=== PATIENT | male | born 1955 | race American Indian/Alaskan Native ===

== ENCOUNTER 2018-03-21 18:58 | Inpatient (IN) | payer MEDICAID, OTHER ==
[2018-03-21] MEDS ORDERED: Sodium Chloride 0.9% 500 ML IV STA (19:31)
[2018-03-21 19:58] LABS: ALB/GLOB RATIO 1.2 (1.1-1.8); ALBUMIN 4.6 g/dL (3.0-4.8); ALT/SGPT 78 U/L (7-56); AST/SGOT 80 U/L (17-59); BLOOD UREA NITROGEN 9 mg/dL (7-21); CALCIUM 8.9 mg/dL (8.4-10.5); GFR AFRICAN-AMERICAN > 60; GFR NON-AFRICAN AMERICAN > 60; LIPASE 69 U/L (23-300)
[2018-03-21 20:08] LABS: BASO # 0.02 K/mm3 (0.0-2.0); BASO % 0.4 % (0.0-3.0); EOS % 0.4 % (1.5-5.0); GRAN # 3.63 (1.4-6.5); GRAN % 72.8 % (50.0-68.0); LYMPH # 0.9 (1.2-3.4); LYMPH % 17.4 % (22.0-35.0); MEAN CELL VOLUME 93.1 fl (80.0-105.0); MEAN CORPUSCULAR HEMOGLOBIN 32.2 pg (25.0-35.0); MEAN CORPUSCULAR HGB CONC 34.6 g/dl (31.0-37.0); MONO # 0.5 (0.1-0.6); RBC 4.35 10^6/uL (3.5-6.1); RED CELL DISTRIBUTION WIDTH 13.2 % (11.5-14.5)
[2018-03-21 20:09] LABS: TROPONIN I 0.01 ng/mL
--- NOTE | 2018-03-21 20:13 | ED PDOC ---
Arrival/HPI - General Historian: Patient <Lyric Connolly - Last Filed: 03/21/18 21:11> <Greg Rowland - Last Filed: 03/21/18 22:23> - General Chief Complaint: Weakness/Neurological Deficit Time Seen by Provider: 03/21/18 19:29 - History of Present Illness Narrative History of Present Illness (Text): 03/21/18 19:32 63yr old male presents today with a 2 week history of dizziness and near syncope. Patient states he had near syncopal episode about one week ago and then had another near syncopal episode today while shopping. Patient states he' s been feeling dizzy for the past 2 weeks. Patient admits to drinking alcohol daily. Patient states that he also occasionally uses heroin. He states his last heroin use was 2 days ago. Patient admits to drinking alcohol today. Patient denies fevers or chills. Denies chest pain or shortness of breath. Patient states he feels as if he is going through alcohol withdrawal. Patient denies nausea or vomiting. Denies abdominal pain. Patient denies hitting his head. Patient states dizzy symptoms seem to worsen if he tries to stand up and walk. Patient's partner states that when the patient was complaining of dizziness she gave him a blood pressure medication. (Lyric Connolly) Past Medical History - Provider Review Nursing Documentation Reviewed: Yes - Travel History Have you recently traveled outside [place] w/in the past 3 mons?: No - Psychiatric Hx Substance Use: Yes (Heroin) <Lyric Connolly - Last Filed: 03/21/18 21:11> Family/Social History - Physician Review Nursing Documentation Reviewed: Yes Family/Social History: Unknown Family HX Smoking Status: Light Smoker < 10 Cigarettes Daily Hx Alcohol Use: Yes Frequency of alcohol use: Few days per week Hx Substance Use: Yes (Heroin) <Lyric Connolly - Last Filed: 03/21/18 21:11> Allergies/Home Meds <Lyric Connolly - Last Filed: 03/21/18 21:11> <Greg Rowland - Last Filed: 03/21/18 22:23> Allergies/Adverse Reactions: Allergies No Known Allergies Allergy (Verified 03/21/18 19:23) Home Medications: Home Meds Medication Instructions Recorded Confirmed No Known Home Med 03/21/18 03/21/18 Review of Systems - Review of Systems Constitutional: absent: Fatigue, Fevers ENT: absent: Sore Throat, Sinus Congestion Respiratory: absent: SOB, Cough Cardiovascular: absent: Chest Pain, Palpitations Gastrointestinal: absent: Abdominal Pain, Nausea, Vomiting Genitourinary Male: absent: Dysuria, Frequency, Hematuria Musculoskeletal: absent: Arthralgias, Back Pain, Neck Pain Skin: absent: Rash, Pruritis Neurological: Dizziness Psychiatric: absent: Anxiety, Depression <Lyric Connolly T - Last Filed: 03/21/18 21:11> Physical Exam Vital Signs Reviewed: Yes Temperature: Afebrile Blood Pressure: Hypertensive Pulse: Regular Respiratory Rate: Normal Appearance: Positive for: Well-Appearing, Non-Toxic, Comfortable Pain Distress: None Mental Status: Positive for: Alert and Oriented X 3 - Systems Exam Head: Present: Atraumatic Pupils: Present: PERRL Extroacular Muscles: Present: EOMI Conjunctiva: Present: Normal Mouth: Present: Moist Mucous Membranes, Other (Tongue fasciculations) Nose (External): Present: Atraumatic Nose (Internal): Present: Normal Inspection Neck: Present: Normal Range of Motion, Trachea Midline Respiratory/Chest: Present: Clear to Auscultation, Good Air Exchange. No: Respiratory Distress, Accessory Muscle Use Cardiovascular: Present: Regular Rate and Rhythm, Normal S1, S2. No: Murmurs Abdomen: No: Tenderness, Distention, Rebound, Guarding Back: Present: Normal Inspection Upper Extremity: Present: Normal ROM Lower Extremity: Present: Normal ROM Neurological: Present: GCS=15, Speech Normal, Motor Func Grossly Intact, Normal Sensory Function Skin: Present: Warm, Dry, Normal Color. No: Rashes Psychiatric: Present: Alert, Oriented x 3 <Lyric Connolly - Last Filed: 03/21/18 21:11> Vital Signs Temp Pulse Resp BP Pulse Ox 03/21/18 21:52 92 H 18 195/114 H 98 03/21/18 20:21 72 16 191/109 H 98 03/21/18 19:16 99.2 F 92 H 14 213/126 H 98 Medical Decision Making Reassessment Condition: Re-examined, Improved <Lyric Connolly - Last Filed: 03/21/18 21:11> <Greg Rowland - Last Filed: 03/21/18 22:23> ED Course and Treatment: 03/21/18 21:11 63-year-old male with dizziness and near syncope. Patient with a history of alcohol abuse CBC within normal limits CMP potassium 3.0 elevated LFTs Troponin within normal limits Urinalysis no leukocytes Urine drug screen positive for opiates Alcohol level negative cT HEAD; FINDINGS: Brain: Periventricular hypoattenuation is likely related to small vessel disease. No hemorrhage. Ventricles: Unremarkable. No ventriculomegaly. Bones/joints: Unremarkable. No acute fracture. Soft tissues: Unremarkable. Sinuses: Unremarkable as visualized. No acute sinusitis. Mastoid air cells: Unremarkable as visualized. No mastoid effusion. IMPRESSION: No acute findings 03/21/18 22:08 Patient alert and oriented, patient remains hypertensive. Patient with tongue fasciculations. Ativan started IV for alcohol withdrawal, banana bag ordered Patient complaining of nausea Zofran added. Aspirin given by mouth Case was discussed in depth with Dr. Khan accepts admission to telemetry for alcohol withdrawal, near syncopal episode Impression: Alcohol withdrawal, near-syncope, hypokalemia, elevated blood pressure Admit to telemetry (Lyric Connolly) - Lab Interpretations Lab Results: 03/21/18 19:44 03/21/18 19:44 Lab Results 03/21/18 20:55: Urine Opiates Screen Positive H, Urine Methadone Screen Negative , Ur Barbiturates Screen Negative, Ur Phencyclidine Scrn Negative, Ur Amphetamines Screen Negative, U Benzodiazepines Scrn Negative, U Oth Cocaine Metabols Negative, U Cannabinoids Screen Negative 03/21/18 20:55: Urine Color Yellow, Urine Appearance Clear, Urine pH 7.5, Ur Specific [place] 1.020, Urine Protein 30 H, Urine Glucose (UA) Negative, Urine Ketones 15 H, Urine Blood Trace-intact H, Urine Nitrate Negative, Urine Bilirubin Negative, Urine Urobilinogen 0.2, Ur Leukocyte Esterase Negative, Urine RBC 1 - 3, Urine WBC 0 - 2, Ur Epithelial Cells 1 - 3 03/21/18 19:44: Alcohol, Quantitative < 10 03/21/18 19:44: WBC 5.0, RBC 4.35, Hgb 14.0, Hct 40.5 L, MCV 93.1, MCH 32.2, MCHC 34.6, RDW 13.2, Plt Count 223, MPV 9.0, Gran % 72.8 H, Lymph % (Auto) 17.4 L, Henry % (Auto) 9.0 H, Eos % (Auto) 0.4 L, Baso % (Auto) 0.4, Gran # 3.63, Lymph # (Auto) 0.9 L, Henry # (Auto) 0.5, Eos # (Auto) 0.0, Baso # (Auto) 0.02 03/21/18 19:44: Sodium 138, Potassium 3.0 L, Chloride 96 L, Carbon Dioxide 28, Anion Gap 17, BUN 9, Creatinine 0.5 L, Est GFR ( Amer) > 60, Est GFR (Non -Af Amer) > 60, Random Glucose 96, Calcium 8.9, Total Bilirubin 0.8, AST 80 H, ALT 78 H, Alkaline Phosphatase 100, Lactate Dehydrogenase 720 H, Total Creatine Kinase 298 H, CK-MB (CK-2) 1.0, CK-MB (CK-2) % Cancelled, Troponin I 0.01, Total Protein 8.4 H, Albumin 4.6, Globulin 3.7, Albumin/Globulin Ratio 1.2, Lipase 69 - RAD Interpretation Radiology Orders: 03/21/18 19:29 HEAD W/O CONTRAST [CT] Stat CHEST PORTABLE [RAD] Stat - Medication Orders Current Medication Orders: Folic Acid 1 mg/ Thiamine HCl 100 mg/ Multivitamins/Vitamin C 10 ml/ Dextrose 1 ,011.2 mls @ 100 mls/hr IV .Q10H7M ABE Discontinued Medications Aspirin (Aspirin) 325 mg PO STAT STA Stop: 03/21/18 22:00 Sodium Chloride (Sodium Chloride 0.9%) 500 mls @ 999 mls/hr IV .Q31M STA Stop: 03/21/18 20:01 Last Admin: 03/21/18 19:43 Dose: 999 mls/hr eMAR Start Stop Document 03/21/18 19:43 DONNA (Rec: 03/21/18 19:43 RG [facility] [id number] Intravenous Solution Start Date 03/21/18 Start Time 19:43 Lorazepam (Ativan) 1 mg IVP ONCE ONE PRN Reason: Protocol Stop: 03/21/18 21:54 Last Admin: 03/21/18 22:14 Dose: 1 mg IVP Administration Document 03/21/18 22:14 RG (Rec: 03/21/18 22:15 RG [facility] [id number]) Charges for Administration # of IVP Administrations 1 Ondansetron HCl (Zofran Inj) 4 mg IVP STAT STA Stop: 03/21/18 21:57 Last Admin: 03/21/18 22:15 Dose: 4 mg IVP Administration Document 03/21/18 22:15 RG (Rec: 03/21/18 22:15 RG [facility] [id number] Charges for Administration # of IVP Administrations 1 Potassium Chloride (K-Dur 20 Meq Er Tab) 40 meq PO STAT STA Stop: 03/21/18 21:26 Last Admin: 03/21/18 21:50 Dose: 40 meq - 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 / has examined the patient and agrees with the treatment plan. <Greg Rowland - Last Filed: 03/21/18 22:23> Disposition/Present on Arrival - Present on Arrival Any Indicators Present on Arrival: No History of DVT/PE: No History of Uncontrolled Diabetes: No Urinary Catheter: No History of Decub. Ulcer: No History Surgical Site Infection Following: None - Disposition Have Diagnosis and Disposition been Completed?: Yes Disposition Time: 21:54 Patient Plan: Admission <Lyric Connolly - Last Filed: 03/21/18 21:11> <Greg Rowland - Last Filed: 03/21/18 22:23> - Disposition Diagnosis: Near syncope, Alcohol withdrawal, Hypokalemia, Elevated liver enzymes Disposition: HOSPITALIZED Patient Problems: Current Active Problems Problem Status Onset Alcohol withdrawal Acute Elevated liver enzymes Acute Hypokalemia Acute Near syncope Acute Condition: FAIR
[2018-03-21 21:05] LABS: PH,URINE 7.5 (4.7-8.0); URINE BILIRUBIN NEGATIVE (NEGATIVE); URINE BLOOD TRACE-INTACT (NEGATIVE); URINE GLUCOSE (UA) NEGATIVE (NEGATIVE); URINE LEUKOCYTE ESTERASE NEGATIVE Leu/uL (NEGATIVE); URINE PROTEIN 30 mg/dL (<30 mg/dL); URINE UROBILINOGEN 0.2 E.U./dL (<1 E.U./dL)
[2018-03-21 21:20] LABS: URINE APPEARANCE CLEAR (CLEAR); URINE COLOR YELLOW (YELLOW)
[2018-03-21 21:23] LABS: URINE WBC 0 - 2 /hpf (0-6)
[2018-03-21] MEDS ORDERED: Potassium Chloride 20 mEq ER Tab PO STA ×2 (21:25→23:06)
[2018-03-21 21:35] LABS: BARBITURATES, UR NEGATIVE (NEGATIVE); BENZODIAZEPINES, UR NEGATIVE (NEGATIVE); OPIATES, UR POSITIVE (NEGATIVE); PHENCYCLIDINE, UR NEGATIVE (NEGATIVE)
[2018-03-21] MEDS ORDERED: Folic Acid 1 MG, Thiamine 100 MG, Multivitamin (MVI) 10 ML in Dextrose 5% In Water 1,00... IV SCH (22:00)
--- NOTE | 2018-03-21 22:41 | CP.PCM.HP ---
<Keily Wolf - Last Filed: 03/22/18 00:27> History of Present Illness - History of Present Illness History of Present Illness: CC: I felt dizzy Patient is a 63 y/o with medical history of chronic alcoholism, heroine abuse, chronic tobacco abuse presenting with dizziness. Patient [place] [employer] when he felt dizzy, like the room was spinning. Admits to photophobia. He decided to get on his knees so he won't fall. Denies falling, not sure if LOC. Denies seizure like activity. Patient admits to prior history of dizziness, and usually it resolves by itself. Patient has never been admitted in the past and doesn't see a pcp. Patient is chronic alcoholic, drinks 2 litters of alcohol a day for over 2 years. Last alcohol was this morning, had about a pint of alcohol. Patient also uses heroine, snorts it, denies IVDA, last time he snorted the heroine was on Thursday. No prior history of alcohol/drug related rehabs, no histories of withdrawals. The dizziness has resolved. Admits to nausea, no vomiting or diarrhea. No abdominal pain, no dysurea. Admits to gait instability, and tremors. Denies cp, sob, or palpitations. PCP: none PMHx: chronic alcoholism, heroine abuse, chronic tobacco. PSHx: hemorhoidectomy FMhx: non contributory Social: drinks 2 litters of alcohol a day, for over 2 years, smokes 6 cig per day for over a decade, snorts heroine, denies cocaine and marijuana. Lives with , off/on construction carpenters helper. Allergy: NKDA Home meds: none. Present on Admission - Present on Admission Any Indicators Present on Admission: No History of DVT/PE: No History of Uncontrolled Diabetes: No Urinary Catheter: No Decubitus Ulcer Present: No History Surgical Site Infection Following: None Review of Systems - Review of Systems All systems: reviewed and no additional remarkable complaints except Review of Systems: 12 point ROS reviewed, all negative except as per HPI. Past Patient History - Tetanus Immunizations Tetanus Immunization: Unknown - Past Medical History & Family History Past Medical History?: Yes - Past Social History Smoking Status: Light Smoker < 10 Cigarettes Daily Alcohol: > 2 Drinks/Day Drugs: Opiates Home Situation {Lives}: With Family - PSYCHIATRIC Hx Substance Use: Yes (Heroin) Meds Allergies/Adverse Reactions: Allergies Allergy/AdvReac Type Severity Reaction Status Date / Time No Known Allergies Allergy Verified 03/21/18 19:23 Physical Exam - Constitutional Appears: No Acute Distress, Older Than Stated Age, Chronically Ill - Head Exam Head Exam: ATRAUMATIC, NORMAL INSPECTION, NORMOCEPHALIC - Eye Exam Eye Exam: EOMI, Normal appearance, PERRL. absent: Scleral icterus Pupil Exam: NORMAL ACCOMODATION - ENT Exam ENT Exam: Mucous Membranes Moist - Neck Exam Neck exam: Positive for: Normal Inspection - Respiratory Exam Respiratory Exam: Clear to Auscultation Bilateral, NORMAL BREATHING PATTERN. absent: Rales, Rhonchi, Wheezes, Respiratory Distress, Stridor - Cardiovascular Exam Cardiovascular Exam: REGULAR RHYTHM, RRR, +S1, +S2. absent: Bradycardia, Tachycardia, Diastolic murmur, Gallop, Irregular Rhythm, JVD, Rubs, Systolic Murmur - GI/Abdominal Exam GI & Abdominal Exam: Normal Bowel Sounds, Soft. absent: Distended, Firm, Guarding, Mass, Organomegaly, Pulsatile Mass, Rebound, Rigid, Tenderness Additional comments: + small old abdominal scar - Extremities Exam Extremities exam: Positive for: normal inspection. Negative for: pedal edema, tenderness - Back Exam Back exam: NORMAL INSPECTION - Neurological Exam Neurological exam: Alert, Oriented x3 Additional comments: + tongie fasciculation, fine hand tremors. No focal deficit. - Psychiatric Exam Psychiatric exam: Anxious, Depressed - Skin Skin Exam: Abrasion, Dry, Warm Results - Vital Signs Recent Vital Signs: Last Vital Signs Temp 99.2 F 03/21/18 19:16 Pulse 95 H 03/21/18 22:33 Resp 14 03/21/18 22:33 BP 146/92 H 03/21/18 22:33 Pulse Ox 95 03/21/18 22:33 - Labs Result Diagrams: 03/21/18 19:44 03/21/18 19:44 - EKG Data EKG Interpreted by: Myself EKG shows normal: Sinus rhythm Rate: Normal (with LVH.) Assessment & Plan - Assessment and Plan (Free Text) Assessment: Patient is a 63 y/o with medical history of chronic alcoholism, heroine abuse, chronic tobacco abuse presenting with dizziness, and was found to be withdrawing from alcohol. Plan: 1- Pre-syncopal episode likely due to alcohol withdrawal versus dehydration due to alcoholism, r/o arrhythmia from electrolytes imbalance - less likely seizures, less likely cva, less likely ACS - CT head ordered, pending - Troponin negative x1 - EKG with sinus rhythm, patient to be admitted to tele - Electrolytes are being repleted - patient undergoing fluid hydration - PT eval 2- Alcohol withdrawal - Etoh <10, however patient admitted to drinking 2 liters of alcohol a day - Currently getting banana bag - will start thiamine and folic acid - [facility] protocol - Ativan 1 mg ivp q6 maile, and Ativan 2 mg q4prn - Fall and seizure precaution. - Alcohol cessation counseling 3) Alcoholic induced ketoacidosis- continue with fluid hydration. 4) Hypokalemia/ Hypomagnesium- will replete and continue to monitor. 5) Transaminitis- likely due to alcohol, will obtain hep panel, and continue to monitor. 6) Mild rhabdomyolysis- patient getting fluid hydration, will repeat cpk in the am 7) Opiate abuse- opiate cessation counseling. 8) Hypertensive urgency- with evidence chronic htn on EKG - With likely due to underlying alcohol/opiate withdrawal - BP improved with Ativan - will add Lopressor prn for sbp >160, hold for HR less than 60. - will add echo due to no prior echo. 9) DVT/GI prophylaxis: Pepcid and VTE device Patient seen, examined and case discussed with Dr Khan. - Date & Time Date: 03/22/18 Time: 00:00 <Onofre Khan - Last Filed: 03/22/18 00:57> Results - Vital Signs Recent Vital Signs: Last Vital Signs Temp 98.4 F 03/22/18 00:11 Pulse 80 03/22/18 00:11 Resp 20 03/22/18 00:11 BP 168/117 H 03/22/18 00:11 Pulse Ox 98 03/22/18 00:11 - Labs Result Diagrams: 03/21/18 19:44 03/21/18 19:44 Attending/Attestation - Attestation I have personally seen and examined this patient.: Yes I have fully participated in the care of the patient.: Yes I have reviewed all pertinent clinical information: Yes Notes (Text): 03/22/18 00:56 Patient was seen when he was in bed #2 in the ER. Agree with history,physical examination, assessment and plan.
[2018-03-21] MEDS ORDERED: Magnesium 2 gm/50 ml NS 2 GM/50 ML BAG IV ONE (23:45)
[2018-03-22 07:18] LABS: ALB/GLOB RATIO 1.2 (1.1-1.8); ALBUMIN 4.2 g/dL (3.0-4.8); ALT/SGPT 67 U/L (7-56); AST/SGOT 69 U/L (17-59); BLOOD UREA NITROGEN 9 mg/dL (7-21); CALCIUM 9.2 mg/dL (8.4-10.5); GFR AFRICAN-AMERICAN > 60; GFR NON-AFRICAN AMERICAN > 60
[2018-03-22 07:23] LABS: TROPONIN I 0.03 ng/mL
[2018-03-22 07:33] LABS: CK-MB 1.7 ng/mL (0.0-3.6)
[2018-03-22 07:38] LABS: BASO # 0.04 K/mm3 (0.0-2.0); BASO % 0.8 % (0.0-3.0); EOS # 0.1 (0.0-0.7); EOS % 1.4 % (1.5-5.0); GRAN # 3.78 (1.4-6.5); GRAN % 74.8 % (50.0-68.0); HEMOGLOBIN 14.5 g/dL (14.0-18.0); LYMPH # 0.7 (1.2-3.4); LYMPH % 14.1 % (22.0-35.0); MEAN CELL VOLUME 92.4 fl (80.0-105.0); MEAN CORPUSCULAR HEMOGLOBIN 32.4 pg (25.0-35.0); MEAN PLATELET VOLUME 9.5 fl (7.0-11.0); MONO # 0.5 (0.1-0.6); MONO % 8.9 % (1.0-6.0); RBC 4.48 10^6/uL (3.5-6.1); RED CELL DISTRIBUTION WIDTH 12.9 % (11.5-14.5); WHITE BLOOD COUNT 5.1 10^3/ul (4.5-11.0)
--- NOTE | 2018-03-22 07:43 | CT ---
PROCEDURE: CT HEAD WITHOUT CONTRAST. HISTORY: dizziness, syncope COMPARISON: None available. TECHNIQUE: Axial computed tomography images were obtained through the head/brain without intravenous contrast. Coronal and sagittal reconstructed images. Radiation dose: Total exam DLP = 860.21 mGy-cm. This CT exam was performed using one or more of the following dose reduction techniques: Automated exposure control, adjustment of the mA and/or kV according to patient size, and/or use of iterative reconstruction technique. FINDINGS: HEMORRHAGE: No intracranial hemorrhage. BRAIN: No mass effect or edema. No atrophy or chronic microvascular ischemic changes. VENTRICLES: Unremarkable. No hydrocephalus. CALVARIUM: Unremarkable. PARANASAL SINUSES: Unremarkable as visualized. No significant inflammatory changes. MASTOID AIR CELLS: Unremarkable as visualized. No inflammatory changes. OTHER FINDINGS: None. IMPRESSION: No acute intracranial abnormalities. No significant findings to account for the clinical presentation. Concordant results (preliminary interpretation) provided by [employer]. Procedure Completed: 20:03 Preliminary ([facility]) Report: Dictated and Authenticated: 20:14 Final Interpretation: 07:41 March 22, 2018.
[2018-03-22] MEDS: Multivitamin Vitamin B Complex (Nephro-Vite) Tab PO SCH (08:09)
--- NOTE | 2018-03-22 11:12 | RAD ---
HISTORY: Syncope. COMPARISON: No prior. FINDINGS: LUNGS: No active pulmonary disease. PLEURA: No significant pleural effusion identified, no pneumothorax apparent. CARDIOVASCULAR: No radiographic findings to suggest acute or significant cardiovascular disease. OSSEOUS STRUCTURES: No significant abnormalities. VISUALIZED UPPER ABDOMEN: Normal. OTHER FINDINGS: None. IMPRESSION: No active disease.
--- NOTE | 2018-03-22 11:50 | CP.PCM.PN ---
<MonyDave Perry - Last Filed: 03/22/18 12:19> Subjective - Date & Time of Evaluation Date of Evaluation: 03/22/18 Time of Evaluation: 08:00 - Subjective Subjective: Medicine progress note: Dr. Bakrley Patient seen and examined at bedside. No acute complaints. No acute events overnight. Patient is doing well. Objective - Vital Signs/Intake and Output Vital Signs (last 24 hours): Temp Pulse Resp BP Pulse Ox 98.2 F 110 H 20 138/88 98 03/22/18 06:00 03/22/18 06:00 03/22/18 06:00 03/22/18 06:00 03/22/18 06:00 Intake and Output: 03/22/18 03/22/18 06:59 18:59 Intake Total 240 Output Total 1000 Balance -760 - Medications Medications: Current Medications Famotidine (Pepcid) 40 mg PO HS [facility] Folic Acid (Folic Acid) 1 mg PO DAILY [facility] Last Admin: 03/22/18 10:23 Dose: 1 mg Sodium Chloride (Sodium Chloride 0.9%) 1,000 mls @ 100 mls/hr IV .Q10H [facility] Lorazepam (Ativan) 2 mg IVP Q4H PRN; Protocol PRN Reason: Symptoms of alcohol withdrawl Lorazepam (Ativan) 1 mg IVP Q6H [facility] PRN Reason: Protocol Last Admin: 03/22/18 10:23 Dose: 1 mg Metoprolol Tartrate (Lopressor) 5 mg IVP Q6 PRN PRN Reason: SBP>160, Hold for HR<60 Nicotine (Nicoderm Cq) 1 patch TD DAILY [facility] Last Admin: 03/22/18 10:23 Dose: 1 patch Ondansetron HCl (Zofran Inj) 4 mg IVP Q6H PRN PRN Reason: Nausea/Vomiting Last Admin: 03/22/18 10:22 Dose: 4 mg Thiamine HCl (Vitamin B1 Tab) 100 mg PO BID [facility] Last Admin: 03/22/18 10:23 Dose: 100 mg Vitamin B Complex/Vit C/Folic Acid (Nephro-Nereyda) 1 tab PO 0800 [facility] Last Admin: 03/22/18 08:09 Dose: 1 tab - Labs Labs: 03/22/18 06:30 03/22/18 06:30 - Constitutional Appears: Non-toxic, Unkempt - Head Exam Head Exam: ATRAUMATIC, NORMAL INSPECTION, NORMOCEPHALIC - Eye Exam Eye Exam: EOMI, Normal appearance, PERRL Pupil Exam: NORMAL ACCOMODATION, PERRL - ENT Exam ENT Exam: Mucous Membranes Moist, Normal Exam - Neck Exam Neck Exam: Full ROM, Normal Inspection. absent: Lymphadenopathy - Respiratory Exam Respiratory Exam: Clear to Ausculation Bilateral, NORMAL BREATHING PATTERN - Cardiovascular Exam Cardiovascular Exam: REGULAR RHYTHM, +S1, +S2. absent: Murmur - GI/Abdominal Exam GI & Abdominal Exam: Soft, Normal Bowel Sounds. absent: Tenderness - Extremities Exam Extremities Exam: Full ROM, Normal Capillary Refill, Normal Inspection. absent : Joint Swelling, Pedal Edema - Back Exam Back Exam: NORMAL INSPECTION - Neurological Exam Neurological Exam: Alert, Awake, CN II-XII Intact, Normal Gait, Oriented x3 - Psychiatric Exam Psychiatric exam: Normal Affect, Normal Mood - Skin Skin Exam: Dry, Intact, Normal Color, Warm Assessment and Plan - Assessment and Plan (Free Text) Assessment: Patient is a 63 y/o with medical history of chronic alcoholism, heroine abuse, chronic tobacco abuse presenting with dizziness, and was found to be withdrawing from alcohol. Pre-syncopal episode less likely due to arrhythmia - although EKG did show a sinus arrhythmia, there is an alternative reason for the event. Patient's initial alcohol level was negative, so needs to be monitored for alcohol withdrawal given history. Regarding patient's HTNsive urgency, EKG does show LVH, thus there might be a chronic component to the HTN. Plan: Pre-syncope likely 2/2 alcohol withdrawal VS dehydration due to alcoholism, r/o arrhythmia from electrolytes imbalance - K+ replete PRN - patient undergoing fluid hydration - PT eval Alcohol withdrawal - CIWA protocol, Fall, Seizure, Aspiration protocol - Ativan 1 mg ivp q6 maile, and Ativan 2 mg q4prn, mild hydration; received banana bag Alcoholic induced ketoacidosis - Continue with fluid hydration. Hypokalemia/ Hypomagnesemia - Replete PRN Transaminitis likely 2/2 Alcohol Abuse - Hep panel ordered Mild rhabdomyolysis - Patient getting fluid hydration, will repeat cpk in the am Hypertensive urgency- with evidence chronic htn on EKG - BP improved with Ativan - Lopressor prn for sbp >160, hold for HR less than 60. - ECHO Alcohol Abuse - Cessation advised Tobacco Abuse - Cessation advised Opiate Abuse - Advise cessation DVT/GI prophylaxis: Pepcid and VTE device <Cheyenne Barkley - Last Filed: 03/22/18 13:18> Objective - Vital Signs/Intake and Output Vital Signs (last 24 hours): Temp Pulse Resp BP Pulse Ox 99 F 85 21 205/131 H 98 03/22/18 12:00 03/22/18 12:52 03/22/18 12:00 03/22/18 12:52 03/22/18 06:00 Intake and Output: 03/22/18 03/22/18 06:59 18:59 Intake Total 240 Output Total 1000 Balance -760 - Medications Medications: Current Medications Famotidine (Pepcid) 40 mg PO [facility] Folic Acid (Folic Acid) 1 mg PO DAILY [facility] Last Admin: 03/22/18 10:23 Dose: 1 mg Sodium Chloride (Sodium Chloride 0.9%) 1,000 mls @ 100 mls/hr IV .Q10H [facility] Last Admin: 03/22/18 12:25 Dose: 100 mls/hr Lorazepam (Ativan) 2 mg IVP Q4H PRN; Protocol PRN Reason: Symptoms of alcohol withdrawl Lorazepam (Ativan) 1 mg IVP Q6H [facility] PRN Reason: Protocol Last Admin: 03/22/18 10:23 Dose: 1 mg Metoprolol Tartrate (Lopressor) 5 mg IVP Q6 PRN PRN Reason: SBP>160, Hold for HR<60 Last Admin: 03/22/18 12:52 Dose: 5 mg Nicotine (Nicoderm Cq) 1 patch TD DAILY [facility] Last Admin: 03/22/18 10:23 Dose: 1 patch Ondansetron HCl (Zofran Inj) 4 mg IVP Q6H PRN PRN Reason: Nausea/Vomiting Last Admin: 03/22/18 10:22 Dose: 4 mg Thiamine HCl (Vitamin B1 Tab) 100 mg PO BID [facility] Last Admin: 03/22/18 10:23 Dose: 100 mg Vitamin B Complex/Vit C/Folic Acid (Nephro-Nereyda) 1 tab PO 0800 [facility] Last Admin: 03/22/18 08:09 Dose: 1 tab - Labs Labs: 03/22/18 06:30 03/22/18 06:30 Attending/Attestation - Attestation I have personally seen and examined this patient.: Yes I have fully participated in the care of the patient.: Yes I have reviewed all pertinent clinical information, including history, physical exam and plan: Yes Notes (Text): 03/22/18 13:12 63 year old male with past medical history of chronic alcohol abuse and substance abuse who presented with complaint of presyncopal episode. He was admitted for hypertensive urgency and alcohol withdrawal. CT head was negative for acute findings. Carotid dopplers and echocardiogram are ordered. He received banana bag and is on multivitamin, folic acid and thiamine. He is on ativan maile/prn for withdrawal symptoms. PT evaluation was also requested. He was counselled on alcohol cessation and on risks of continued substance abuse. Will replete and repeat lytes (potassium). LFTs are elevated, likely secondary to ETOH abuse. Will continue to monitor closely and follow up on hepatitis panel. Cheyenne Barkley MD Hospitalist.
[2018-03-22] MEDS ORDERED: Potassium Chloride 20 mEq ER Tab PO STA (12:10)
[2018-03-22] MEDS: Sodium Chloride 0.9% 1,000 ML IV SCH (12:25)
[2018-03-22 12:47] LABS: HEPATITIS B SURFACE AG Negative (NEGATIVE)
[2018-03-22] MEDS: Metoprolol 1 mg/ml Inj IVP PRN ×2 (12:52→18:09)
[2018-03-22 12:53] LABS: HEPATITIS A IGM NEGATIVE (NEGATIVE); HEPATITIS B CORE AB NEGATIVE (NEGATIVE)
[2018-03-22 13:05] LABS: HEPATITIS C ANTIBODY NEGATIVE (NEGATIVE)
--- NOTE | 2018-03-22 17:25 | CARD ---
APPROVED REPORT EKG Measurement Heart [id number] <Conclusion> Sinus rhythm with marked sinus arrhythmia Voltage criteria for left ventricular hypertrophy Abnormal ECG
[2018-03-22] MEDS ORDERED: Metoprolol 1 mg/ml Inj IVP ONE (22:45)
[2018-03-23] MEDS: Metoprolol 1 mg/ml Inj IVP PRN (05:10)
[2018-03-23 06:30] LABS: BASO # 0.01 K/mm3 (0.0-2.0); BASO % 0.1 % (0.0-3.0); GRAN % 84.4 % (50.0-68.0); HEMOGLOBIN 15.9 g/dL (14.0-18.0); LYMPH # 0.6 (1.2-3.4); LYMPH % 7.7 % (22.0-35.0); MEAN CORPUSCULAR HEMOGLOBIN 32.5 pg (25.0-35.0); MEAN CORPUSCULAR HGB CONC 35.3 g/dl (31.0-37.0); MEAN PLATELET VOLUME 8.8 fl (7.0-11.0); MONO # 0.7 (0.1-0.6); MONO % 7.8 % (1.0-6.0); RBC 4.89 10^6/uL (3.5-6.1); RED CELL DISTRIBUTION WIDTH 13.3 % (11.5-14.5); WHITE BLOOD COUNT 8.3 10^3/ul (4.5-11.0)
[2018-03-23 07:25] LABS: ALBUMIN 4.6 g/dL (3.0-4.8); ALT/SGPT 64 U/L (7-56); AST/SGOT 58 U/L (17-59); BLOOD UREA NITROGEN 16 mg/dL (7-21); CALCIUM 9.7 mg/dL (8.4-10.5); GFR AFRICAN-AMERICAN > 60; GFR NON-AFRICAN AMERICAN > 60
[2018-03-23] MEDS: Sodium Chloride 0.9% 1,000 ML IV SCH (08:21)
[2018-03-23] MEDS: Multivitamin Vitamin B Complex (Nephro-Vite) Tab PO SCH (08:38)
[2018-03-23] MEDS ORDERED: Potassium Chloride 20 mEq ER Tab PO STA (09:15)
--- NOTE | 2018-03-23 09:28 | CARD ---
APPROVED REPORT EXAM: Two-dimensional and M-mode echocardiogram with Doppler and color Doppler. Other Information Quality : GoodR[employer] : INDICATION Hypertension/HCVD 2D DIMENSIONS Left Atrium (2D)3.5 (1.6-4.0cm)IVSd1.3 (0.7-1.1cm) LVDd4.1 (3.9-5.9cm)PWd1.3 (0.7-1.1cm) LVDs2.9 (2.5-4.0cm)FS (%) 29.3 % LVEF (%)57.0 (>50%) M-Mode DIMENSIONS Aortic Root2.50 (2.2-3.7cm)Aortic Cusp Exc.2.10 (1.5-2.0cm) Aortic Valve AoV Peak Mnlrylht412.0cm/s Mitral Valve MV E Ryqcqbyw96.1cm/sMV A Egixhhyh22.2cm/sE/A ratio0.7 TDI E/Lateral E'0.0E/Medial E'0.0 LEFT VENTRICLE The left ventricle is normal size. There is mild concentric left ventricular hypertrophy. The left ventricular function is normal. The left ventricular ejection fraction is within the normal range. There is normal LV segmental wall motion. RIGHT VENTRICLE The right ventricle is normal size. ATRIA The left atrium size is normal. The right atrium size is normal. The interatrial septum is intact with no evidence for an atrial septal defect. AORTIC VALVE The aortic valve is normal in structure. There is trace aortic regurgitation. MITRAL VALVE The mitral valve is normal in structure. TRICUSPID VALVE The tricuspid valve is normal in structure. PULMONIC VALVE The pulmonic valve is not well visualized. GREAT VESSELS The aortic root is normal in size. PERICARDIAL EFFUSION There is no pericardial effusion. <Conclusion> The left ventricle is normal size. There is mild concentric left ventricular hypertrophy. The left ventricular function is normal.
--- NOTE | 2018-03-23 12:01 | CP.PCM.PN ---
<MonyDave - Last Filed: 03/23/18 11:56> Subjective - Date & Time of Evaluation Date of Evaluation: 03/23/18 Time of Evaluation: 11:56 - Subjective Subjective: Medicine progress note: Dr. Barkley Patient seen and examined at bedside. Patient was hypertensive overnight and requested Suboxone, which is NF here. This am, patient stating that he would like something more for his withdrawals. Patient denies any headache, chest pain or dizziness. Objective - Vital Signs/Intake and Output Vital Signs (last 24 hours): Temp Pulse Resp BP Pulse Ox 99.2 F 102 H 20 187/123 H 97 03/23/18 06:00 03/23/18 08:38 03/23/18 06:00 03/23/18 08:38 03/23/18 06:00 Intake and Output: 03/23/18 03/23/18 06:59 18:59 Intake Total 180 180 Output Total 200 200 Balance -20 -20 - Medications Medications: Current Medications Amlodipine Besylate (Norvasc) 5 mg PO DAILY [facility] Last Admin: 03/23/18 08:39 Dose: 5 mg Chlordiazepoxide (Librium) 25 mg PO Q8 [facility] PRN Reason: Protocol Clonidine HCl (Catapres) 0.1 mg PO TID PRN PRN Reason: Agitation Famotidine (Pepcid) 40 mg PO HS [facility] Last Admin: 03/22/18 23:13 Dose: 40 mg Folic Acid (Folic Acid) 1 mg PO DAILY [facility] Last Admin: 03/23/18 11:25 Dose: 1 mg Sodium Chloride (Sodium Chloride 0.9%) 1,000 mls @ 100 mls/hr IV .Q10H [facility] Last Admin: 03/22/18 12:25 Dose: 100 mls/hr Lisinopril (Zestril) 5 mg PO DAILY [facility] Last Admin: 03/23/18 08:38 Dose: 5 mg Lorazepam (Ativan) 2 mg IVP Q4H PRN; Protocol PRN Reason: Symptoms of alcohol withdrawl Nicotine (Nicoderm Cq) 1 patch TD DAILY [facility] Last Admin: 03/23/18 11:26 Dose: 1 patch Ondansetron HCl (Zofran Inj) 4 mg IVP Q6H PRN PRN Reason: Nausea/Vomiting Last Admin: 03/22/18 15:43 Dose: 4 mg Thiamine HCl (Vitamin B1 Tab) 100 mg PO BID [facility] Last Admin: 03/23/18 11:29 Dose: 100 mg Vitamin B Complex/Vit C/Folic Acid (Nephro-Nereyda) 1 tab PO 0800 [facility] Last Admin: 03/23/18 08:38 Dose: 1 tab - Labs Labs: 03/23/18 06:00 03/23/18 06:00 Assessment and Plan - Assessment and Plan (Free Text) Assessment: Assessment: Patient is a 63 y/o with medical history of chronic alcoholism, heroine abuse, chronic tobacco abuse presenting with dizziness, and was found to be withdrawing from alcohol. Pre-syncopal episode less likely due to arrhythmia - although EKG did show a sinus arrhythmia, there is an alternative reason for the event. Patient's initial alcohol level was negative, so needs to be monitored for alcohol withdrawal given history. Regarding patient's HTNsive urgency, EKG does show LVH, thus there might be a chronic component to the HTN, but there also might be a component of withdrawals causing the HTN. No evidence of end organ damage given no symptoms and no AMI (ECHO normal, negative tropes, EKG NSR), TOMMY, and we have an alternative reason for Transaminitis. Plan: Pre-syncope likely 2/2 alcohol withdrawal VS dehydration due to alcoholism, r/o arrhythmia from electrolytes imbalance - K+ replete PRN - Patient undergoing fluid hydration - PT eval Alcohol withdrawal - CIWA protocol, Fall, Seizure, Aspiration protocol - Ativan 1 mg ivp q6 maile, and Ativan 2 mg q4prn, mild hydration; received banana bag Alcoholic induced ketoacidosis - Continue with fluid hydration. Hypokalemia/ Hypomagnesemia - Replete PRN Transaminitis likely 2/2 Alcohol Abuse - Hep panel ordered, negative Mild Rhabdomyolysis - Patient getting fluid hydration, CPK stable Hypertensive urgency- with evidence chronic htn on EKG - Added Norvasc MAILE, Lisinopril MAILE and Clonidine TID PRN - Lopressor prn has been discontinued Alcohol Abuse - Cessation advised Tobacco Abuse - Cessation advised Opiate Abuse - Advise cessation DVT/GI prophylaxis: Pepcid and VTE device <Cheyenne Barkley - Last Filed: 03/23/18 15:44> Objective - Vital Signs/Intake and Output Vital Signs (last 24 hours): Temp Pulse Resp BP Pulse Ox 98.5 F 115 H 19 186/98 H 97 03/23/18 12:00 03/23/18 13:41 03/23/18 12:00 03/23/18 13:41 03/23/18 06:00 Intake and Output: 03/23/18 03/23/18 06:59 18:59 Intake Total 180 180 Output Total 200 200 Balance -20 -20 - Medications Medications: Current Medications Amlodipine Besylate (Norvasc) 5 mg PO DAILY [facility] Last Admin: 03/23/18 08:39 Dose: 5 mg Chlordiazepoxide (Librium) 25 mg PO Q8 [facility] PRN Reason: Protocol Last Admin: 03/23/18 13:40 Dose: 25 mg Clonidine HCl (Catapres) 0.1 mg PO TID PRN PRN Reason: Agitation Last Admin: 03/23/18 13:41 Dose: 0.1 mg Famotidine (Pepcid) 40 mg PO HS [facility] Last Admin: 03/22/18 23:13 Dose: 40 mg Folic Acid (Folic Acid) 1 mg PO DAILY [facility] Last Admin: 03/23/18 11:25 Dose: 1 mg Sodium Chloride (Sodium Chloride 0.9%) 1,000 mls @ 100 mls/hr IV .Q10H [facility] Last Admin: 03/22/18 12:25 Dose: 100 mls/hr Lisinopril (Zestril) 5 mg PO DAILY [facility] Last Admin: 03/23/18 08:38 Dose: 5 mg Lorazepam (Ativan) 2 mg IVP Q4H PRN; Protocol PRN Reason: Symptoms of alcohol withdrawl Nicotine (Nicoderm Cq) 1 patch TD DAILY [facility] Last Admin: 03/23/18 11:26 Dose: 1 patch Ondansetron HCl (Zofran Inj) 4 mg IVP Q6H PRN PRN Reason: Nausea/Vomiting Last Admin: 03/22/18 15:43 Dose: 4 mg Thiamine HCl (Vitamin B1 Tab) 100 mg PO BID [facility] Last Admin: 03/23/18 11:29 Dose: 100 mg Vitamin B Complex/Vit C/Folic Acid (Nephro-Nereyda) 1 tab PO 0800 [facility] Last Admin: 03/23/18 08:38 Dose: 1 tab - Labs Labs: 03/23/18 06:00 03/23/18 06:00 Attending/Attestation - Attestation I have personally seen and examined this patient.: Yes I have fully participated in the care of the patient.: Yes I have reviewed all pertinent clinical information, including history, physical exam and plan: Yes Notes (Text): 03/23/18 15:42 63 year old male with past medical history of chronic alcohol abuse and substance abuse who presented with complaint of presyncopal episode. He was admitted for hypertensive urgency and alcohol withdrawal. CT head was negative for acute findings. Carotid doppler is pending. Echocardiogram was reviewed. PT evaluation was appreciated. He received banana bag and is on multivitamin, folic acid and thiamine. He is on ativan prn for withdrawal symptoms and librium is added today. He was counselled on alcohol cessation and on risks of continued substance abuse. Will replete and repeat lytes (potassium). LFTs are elevated but improving, likely secondary to ETOH abuse. Will continue to monitor closely. Hepatitis panel was negative. His blood pressure is still elevated. He is on norvasc 5 mg and lisinopril 5 mg was added today in addition to clonidine prn. If still elevated can increase either norvasc or lisinopril to 10 mg. Cheyenne Barkley MD Hospitalist.
[2018-03-23 12:38] LABS: CK-MB 1.4 ng/mL (0.0-3.6)
[2018-03-24 05:57] VITALS: TEMP 99.3; O2SAT 97
[2018-03-24] MEDS: Multivitamin Vitamin B Complex (Nephro-Vite) Tab PO SCH (08:05)
[2018-03-24 08:08] VITALS: BP 172/112; PULSE 113
[2018-03-24 08:23] VITALS: RESP 16
--- NOTE | 2018-03-24 13:53 | CP.PCM.DIS ---
<Dave Sykes - Last Filed: 03/24/18 13:48> Provider - Provider Date of Admission: 03/21/18 21:57 Attending physician: Cheyenne Barkley MD Primary care physician: NO PRIMARY CARE PROVIDER Time Spent in preparation of Discharge (in minutes): 15 Hospital Course - Lab Results Lab Results: Most Recent Lab Values WBC 8.3 10^3/ul (4.5-11.0) D 03/23/18 06:00 RBC 4.89 10^6/uL (3.5-6.1) 03/23/18 06:00 Hgb 15.9 g/dL (14.0-18.0) 03/23/18 06:00 Hct 45.0 % (42.0-52.0) 03/23/18 06:00 MCV 92.0 fl (80.0-105.0) 03/23/18 06:00 MCH 32.5 pg (25.0-35.0) 03/23/18 06:00 MCHC 35.3 g/dl (31.0-37.0) 03/23/18 06:00 RDW 13.3 % (11.5-14.5) 03/23/18 06:00 Plt Count 263 10^3/uL (120.0-450.0) 03/23/18 06:00 MPV 8.8 fl (7.0-11.0) 03/23/18 06:00 Gran % 84.4 % (50.0-68.0) H 03/23/18 06:00 Lymph % (Auto) 7.7 % (22.0-35.0) L 03/23/18 06:00 [place] % (Auto) 7.8 % (1.0-6.0) H 03/23/18 06:00 Eos % (Auto) 0.0 % (1.5-5.0) L 03/23/18 06:00 Baso % (Auto) 0.1 % (0.0-3.0) 03/23/18 06:00 Gran # 7.00 (1.4-6.5) H 03/23/18 06:00 Lymph # (Auto) 0.6 (1.2-3.4) L 03/23/18 06:00 [place] # (Auto) 0.7 (0.1-0.6) H 03/23/18 06:00 Eos # (Auto) 0.0 (0.0-0.7) 03/23/18 06:00 Baso # (Auto) 0.01 K/mm3 (0.0-2.0) 03/23/18 06:00 Sodium 141 mmol/L (132-148) 03/23/18 06:00 Potassium 3.1 mmol/L (3.6-5.0) L 03/23/18 06:00 Chloride 100 mmol/L (98-107) 03/23/18 06:00 Carbon Dioxide 27 mmol/L (21-33) 03/23/18 06:00 Anion Gap 17 (10-20) 03/23/18 06:00 BUN 16 mg/dL (7-21) 03/23/18 06:00 Creatinine 0.7 mg/dl (0.8-1.5) L 03/23/18 06:00 Est GFR ( Amer) > 60 03/23/18 06:00 Est GFR (Non-Af Amer) > 60 03/23/18 06:00 Random Glucose 115 mg/dL (70-110) H 03/23/18 06:00 Calcium 9.7 mg/dL (8.4-10.5) 03/23/18 06:00 Phosphorus 2.5 mg/dL (2.5-4.5) 03/22/18 06:30 Magnesium 1.8 mg/dL (1.7-2.2) 03/23/18 06:30 Total Bilirubin 0.9 mg/dL (0.2-1.3) 03/23/18 06:00 AST 58 U/L (17-59) 03/23/18 06:00 ALT 64 U/L (7-56) H 03/23/18 06:00 Alkaline Phosphatase 100 U/L (38-126) 03/23/18 06:00 Lactate Dehydrogenase 720 U/L (333-699) H 03/21/18 19:44 Total Creatine Kinase 327 U/L (35-230) H 03/23/18 11:07 CK-MB (CK-2) 1.4 ng/mL (0.0-3.6) 03/23/18 11:07 CK-MB (CK-2) % Cancelled 03/21/18 19:44 Troponin I 0.03 ng/mL D 03/22/18 06:30 Total Protein 9.0 g/dL (5.8-8.3) H 03/23/18 06:00 Albumin 4.6 g/dL (3.0-4.8) 03/23/18 06:00 Globulin 4.4 gm/dL 03/23/18 06:00 Albumin/Globulin Ratio 1.0 (1.1-1.8) L 03/23/18 06:00 Lipase 69 U/L (23-300) 03/21/18 19:44 Urine Color Yellow (YELLOW) 03/21/18 20:55 Urine Appearance Clear (CLEAR) 03/21/18 20:55 Urine pH 7.5 (4.7-8.0) 03/21/18 20:55 Ur Specific [place] 1.020 (1.005-1.035) 03/21/18 20:55 Urine Protein 30 mg/dL (<30 mg/dL) H 03/21/18 20:55 Urine Glucose (UA) Negative mg/dL (NEGATIVE) 03/21/18 20:55 Urine Ketones 15 mg/dL (NEGATIVE) H 03/21/18 20:55 Urine Blood Trace-intact (NEGATIVE) H 03/21/18 20:55 Urine Nitrate Negative (NEGATIVE) 03/21/18 20:55 Urine Bilirubin Negative (NEGATIVE) 03/21/18 20:55 Urine Urobilinogen 0.2 E.U./dL (<1 E.U./dL) 03/21/18 20:55 Ur Leukocyte Esterase Negative Obie/uL (NEGATIVE) 03/21/18 20:55 Urine RBC 1 - 3 /hpf (0-2) 03/21/18 20:55 Urine WBC 0 - 2 /hpf (0-6) 03/21/18 20:55 Ur Epithelial Cells 1 - 3 /hpf (0-5) 03/21/18 20:55 Urine Opiates Screen Positive (NEGATIVE) H 03/21/18 20:55 Urine Methadone Screen Negative (NEGATIVE) 03/21/18 20:55 Ur Barbiturates Screen Negative (NEGATIVE) 03/21/18 20:55 Ur Phencyclidine Scrn Negative (NEGATIVE) 03/21/18 20:55 Ur Amphetamines Screen Negative (NEGATIVE) 03/21/18 20:55 U Benzodiazepines Scrn Negative (NEGATIVE) 03/21/18 20:55 U Oth Cocaine Metabols Negative (NEGATIVE) 03/21/18 20:55 U Cannabinoids Screen Negative (NEGATIVE) 03/21/18 20:55 Alcohol, Quantitative < 10 mg/dL (0-10) 03/21/18 19:44 Hepatitis A IgM Ab Negative (NEGATIVE) 03/22/18 06:30 Hep Bs Antigen Negative (NEGATIVE) 03/22/18 06:30 Hep B Core IgM Ab Negative (NEGATIVE) 03/22/18 06:30 Hepatitis C Antibody Negative (NEGATIVE) 03/22/18 06:30 - Hospital Course Hospital Course: 63 year old male with past medical history of alcohol abuse, tobacco abuse, heroin abuse and supposed hypertension presented on 03/21 with dizziness and near-syncopal episode. Patient stated that he was walking around [employer] when he felt dizzy and decided to get on his knees so that he wouldn't fall. Patient had an ECHO performed which was negative, had a head CT which was negative, and troponins were negative. Patient's alcohol level was elevated when he came in and he was put on aspiration, seizure, fall, and CIWA protocols ; most recent CIWA score was 3. Patient was given scheduled librium and PRN ativan. Patient has also had uncontrolled blood pressure while here; he was started on norvasc, lisinopril, hydralazine, and clonidine prn which kept his blood pressure controlled. On day of AMA, patient stated that he wanted to leave and that his son was on his way to get him. I explained the risks of leaving, including his blood pressure and standing librium order that could cause withdrawals, but patient did not relent. I told him that he could undergo serious injury, permanent disability, and even ; he expressed understanding. Patient was given scripts for Norvasc 5 and Lisinopril 5 Discharge Exam - Head Exam Head Exam: ATRAUMATIC, NORMAL INSPECTION, NORMOCEPHALIC - Eye Exam Eye Exam: EOMI, Normal appearance, PERRL Pupil Exam: NORMAL ACCOMODATION, PERRL - Respiratory Exam Respiratory Exam: Clear to PA & Lateral, NORMAL BREATHING PATTERN, UNREMARKABLE - Cardiovascular Exam Cardiovascular Exam: REGULAR RHYTHM, RRR, +S1, +S2. absent: Systolic Murmur - GI/Abdominal Exam GI & Abdominal Exam: Normal Bowel Sounds - Extremities Exam Extremities exam: normal capillary refill, normal inspection - Back Exam Back exam: NORMAL INSPECTION - Neurological Exam Neurological exam: Alert, CN II-XII Intact, Normal Gait, Oriented x3, Reflexes Normal - Psychiatric Exam Psychiatric exam: Normal Affect, Normal Mood - Skin Skin Exam: Dry, Intact, Normal Color, Warm Discharge Plan - Follow Up Plan Condition: GUARDED Disposition: AGAINST MEDICAL ADVICE Instructions: Hypokalemia (DC), Hypokalemia (GEN) Referrals: PCP,NO [Primary Care Provider] - <Cheyenne Barkley - Last Filed: 03/24/18 14:32> Provider - Provider Date of Admission: 03/21/18 21:57 Attending physician: Cheyenne Barkley MD Primary care physician: NO PRIMARY CARE PROVIDER Hospital Course - Lab Results Lab Results: Most Recent Lab Values WBC 8.3 10^3/ul (4.5-11.0) D 03/23/18 06:00 RBC 4.89 10^6/uL (3.5-6.1) 03/23/18 06:00 Hgb 15.9 g/dL (14.0-18.0) 03/23/18 06:00 Hct 45.0 % (42.0-52.0) 03/23/18 06:00 MCV 92.0 fl (80.0-105.0) 03/23/18 06:00 MCH 32.5 pg (25.0-35.0) 03/23/18 06:00 MCHC 35.3 g/dl (31.0-37.0) 03/23/18 06:00 RDW 13.3 % (11.5-14.5) 03/23/18 06:00 Plt Count 263 10^3/uL (120.0-450.0) 03/23/18 06:00 MPV 8.8 fl (7.0-11.0) 03/23/18 06:00 Gran % 84.4 % (50.0-68.0) H 03/23/18 06:00 Lymph % (Auto) 7.7 % (22.0-35.0) L 03/23/18 06:00 [place] % (Auto) 7.8 % (1.0-6.0) H 03/23/18 06:00 Eos % (Auto) 0.0 % (1.5-5.0) L 03/23/18 06:00 Baso % (Auto) 0.1 % (0.0-3.0) 03/23/18 06:00 Gran # 7.00 (1.4-6.5) H 03/23/18 06:00 Lymph # (Auto) 0.6 (1.2-3.4) L 03/23/18 06:00 [place] # (Auto) 0.7 (0.1-0.6) H 03/23/18 06:00 Eos # (Auto) 0.0 (0.0-0.7) 03/23/18 06:00 Baso # (Auto) 0.01 K/mm3 (0.0-2.0) 03/23/18 06:00 Sodium 141 mmol/L (132-148) 03/23/18 06:00 Potassium 3.1 mmol/L (3.6-5.0) L 03/23/18 06:00 Chloride 100 mmol/L (98-107) 03/23/18 06:00 Carbon Dioxide 27 mmol/L (21-33) 03/23/18 06:00 Anion Gap 17 (10-20) 03/23/18 06:00 BUN 16 mg/dL (7-21) 03/23/18 06:00 Creatinine 0.7 mg/dl (0.8-1.5) L 03/23/18 06:00 Est GFR ( Amer) > 60 03/23/18 06:00 Est GFR (Non-Af Amer) > 60 03/23/18 06:00 Random Glucose 115 mg/dL (70-110) H 03/23/18 06:00 Calcium 9.7 mg/dL (8.4-10.5) 03/23/18 06:00 Phosphorus 2.5 mg/dL (2.5-4.5) 03/22/18 06:30 Magnesium 1.8 mg/dL (1.7-2.2) 03/23/18 06:30 Total Bilirubin 0.9 mg/dL (0.2-1.3) 03/23/18 06:00 AST 58 U/L (17-59) 03/23/18 06:00 ALT 64 U/L (7-56) H 03/23/18 06:00 Alkaline Phosphatase 100 U/L (38-126) 03/23/18 06:00 Lactate Dehydrogenase 720 U/L (333-699) H 03/21/18 19:44 Total Creatine Kinase 327 U/L (35-230) H 03/23/18 11:07 CK-MB (CK-2) 1.4 ng/mL (0.0-3.6) 03/23/18 11:07 CK-MB (CK-2) % Cancelled 03/21/18 19:44 Troponin I 0.03 ng/mL D 03/22/18 06:30 Total Protein 9.0 g/dL (5.8-8.3) H 03/23/18 06:00 Albumin 4.6 g/dL (3.0-4.8) 03/23/18 06:00 Globulin 4.4 gm/dL 03/23/18 06:00 Albumin/Globulin Ratio 1.0 (1.1-1.8) L 03/23/18 06:00 Lipase 69 U/L (23-300) 03/21/18 19:44 Urine Color Yellow (YELLOW) 03/21/18 20:55 Urine Appearance Clear (CLEAR) 03/21/18 20:55 Urine pH 7.5 (4.7-8.0) 03/21/18 20:55 Ur Specific [place] 1.020 (1.005-1.035) 03/21/18 20:55 Urine Protein 30 mg/dL (<30 mg/dL) H 03/21/18 20:55 Urine Glucose (UA) Negative mg/dL (NEGATIVE) 03/21/18 20:55 Urine Ketones 15 mg/dL (NEGATIVE) H 03/21/18 20:55 Urine Blood Trace-intact (NEGATIVE) H 03/21/18 20:55 Urine Nitrate Negative (NEGATIVE) 03/21/18 20:55 Urine Bilirubin Negative (NEGATIVE) 03/21/18 20:55 Urine Urobilinogen 0.2 E.U./dL (<1 E.U./dL) 03/21/18 20:55 Ur Leukocyte Esterase Negative Obie/uL (NEGATIVE) 03/21/18 20:55 Urine RBC 1 - 3 /hpf (0-2) 03/21/18 20:55 Urine WBC 0 - 2 /hpf (0-6) 03/21/18 20:55 Ur Epithelial Cells 1 - 3 /hpf (0-5) 03/21/18 20:55 Urine Opiates Screen Positive (NEGATIVE) H 03/21/18 20:55 Urine Methadone Screen Negative (NEGATIVE) 03/21/18 20:55 Ur Barbiturates Screen Negative (NEGATIVE) 03/21/18 20:55 Ur Phencyclidine Scrn Negative (NEGATIVE) 03/21/18 20:55 Ur Amphetamines Screen Negative (NEGATIVE) 03/21/18 20:55 U Benzodiazepines Scrn Negative (NEGATIVE) 03/21/18 20:55 U Oth Cocaine Metabols Negative (NEGATIVE) 03/21/18 20:55 U Cannabinoids Screen Negative (NEGATIVE) 03/21/18 20:55 Alcohol, Quantitative < 10 mg/dL (0-10) 03/21/18 19:44 Hepatitis A IgM Ab Negative (NEGATIVE) 03/22/18 06:30 Hep Bs Antigen Negative (NEGATIVE) 03/22/18 06:30 Hep B Core IgM Ab Negative (NEGATIVE) 03/22/18 06:30 Hepatitis C Antibody Negative (NEGATIVE) 03/22/18 06:30 Discharge Plan - Follow Up Plan Patient education suggested?: Yes Attending/Attestation - Attestation I have reviewed all pertinent clinical information, including history, physical exam and plan: Yes Notes (Text): 03/24/18 14:31 Patient signed out against medical advice prior to rounds.
== END 2018-03-24 09:42 | disposition left against medical advice (07) | DRG 305 ==
LOC: ED 18:58 → ERH 21:57 → 2RSO 23:13
PROVIDERS: ADMIT Internal Medicine; ATTEND Internal Medicine
DX: I16.0 Hypertensive urgency (principal); F10.239 Alcohol dependence with withdrawal, unspecified; M62.82 Rhabdomyolysis; E87.2 Acidosis; E86.0 Dehydration; E87.6 Hypokalemia; F17.210 Nicotine dependence, cigarettes, uncomplicated; F11.10 Opioid abuse, uncomplicated; R42 Dizziness and giddiness; E83.42 Hypomagnesemia; R55 Syncope and collapse